=== PATIENT | male | born 2000 | race Caucasian/White ===

== ENCOUNTER 2022-02-27 19:00 | Emergency (ER) | payer SELFPAY | END 2022-02-27 20:34 | disposition home or self-care (01) | LOC: ER1 19:00 | DX: S61.512A Laceration without foreign body of left wrist, initial encounter (principal); R55 Syncope and collapse; W25.XXXA Contact with sharp glass, initial encounter; Y99.0 Civilian activity done for income or pay | CPT/HCPCS: 12001; 90471; 90715; 99283 ==